=== PATIENT | female | born 1950 | race Caucasian/White ===

== ENCOUNTER 2019-12-28 09:49 | Outpatient (CLI) | payer MEDICARE, SELFPAY ==
--- NOTE | ~2019-12-28 | DEXA_ITS ---
Bone Density Report Name: Marci Hess Age: 69 Sex: Female Ethnicity: White Date of : 1950 Indication: osteopenia; height loss; Referring Provider: ANGELA RUANO Study: Bone densitometry was performed. Exam Date: December 28, 2019 Accession number: [id number] Bone Density: Region BMD T-score Z-score Classification AP Spine (L1, L2) 0.888 -0.8 1.1 Normal Femoral Neck (Left) 0.630 -2.0 -0.2 Osteopenia Total Hip (Left) 0.786 -1.3 0.2 Osteopenia Total Hip Bilateral Avg 0.794 -1.3 0.3 Osteopenia Femoral Neck (Right) 0.632 -2.0 -0.2 Osteopenia Total Hip (Right) 0.800 -1.2 0.3 Osteopenia World Health Organization criteria for BMD impression classify patients as: Normal (T-score at or above -1.0), Osteopenia (T-score between -1.0 and -2.5), or Osteoporosis (T-score at or below -2.5). 10-year Fracture Risk(1): Major Osteoporotic Fracture 11% Hip Fracture 2.0% Reported Risk Factors: [place] (), Neck BMD=0.632, BMI=28.6 (1) FRAX(R) Version 3.08. Fracture probability calculated for an untreated patient. Fracture probability may be lower if the patient has received treatment. Previous Exams: Region Exam Age BMD T-score BMD Change BMD Change Date g/cm2 vs Baseline vs Previous AP Spine(L1, L2) 12/28/2019 69 0.888 -0.8 -0.132(-12.9%) -0.062(-6.6%)* 12/24/2017 67 0.951 -0.3 -0.070(-6.8%)# -0.064(-6.3%)# 06/19/2010 60 1.014 0.3 -0.006(-0.6%) -0.006(-0.6%) 03/03/2007 56 1.020 0.4 Total Hip(Left) 12/28/2019 69 0.786 -1.3 -0.069(-8.0%)# -0.027(-3.4%)* 12/24/2017 67 0.813 -1.1 -0.041(-4.8%)# -0.008(-1.0%)# 06/19/2010 60 0.822 -1.0 -0.033(-3.9%)* -0.033(-3.9%)* 03/03/2007 56 0.855 -0.7 Total Hip(Right) 12/28/2019 69 0.800 -1.2 -0.054(-6.3%)# -0.017(-2.1%) 12/24/2017 67 0.817 -1.0 -0.037(-4.3%)# -0.013(-1.5%)# 06/19/2010 60 0.830 -0.9 -0.024(-2.8%) -0.024(-2.8%) 03/03/2007 56 0.854 -0.7 *Denotes significance at 95% confidence level, LSC for AP Spine = 0.022 g/cm2, LSC for Total Hip = 0.027 g/cm2 Clinical Information Provided by Patient: Has used the following medications: Vitamin D Patient maximum height was 63 Menopause Age: 50 Does not regularly consume dairy products Onset of menses at age 11 Number of children 2 Impression: The patient has low bone mass, based on the Left Femoral Neck T-score. The patient has an estimated ten-year risk of hip frac
== END 2019-12-28 09:50 | disposition home or self-care (01) ==
PROVIDERS: PCP Family Medicine; Visit Provider Family Medicine
DX: Z78.0 Asymptomatic menopausal state (principal); M85.852 Other specified disorders of bone density and structure, left thigh; M85.851 Other specified disorders of bone density and structure, right thigh
CPT/HCPCS: 77080

== ENCOUNTER 2021-03-28 15:11 | Outpatient (CLI) | payer MEDICARE, SELFPAY ==
--- NOTE | ~2021-03-28 | MM_ITS ---
EXAMINATION: MM screening jeff BI w liudmila HISTORY: Screening mammogram TECHNIQUE: Craniocaudal and mediolateral oblique 3-D tomosynthesis images were obtained and synthetic 2-D images were generated. CAD analysis was submitted and interpreted. COMPARISON: 01/26/2019, 12/24/2017, 12/18/2016 bilateral digital screening mammogram examinations BREAST PARENCHYMAL COMPOSITION: There are scattered areas of fibroglandular density. FINDINGS: There is no evidence of suspicious mass, calcification, or architectural distortion to sugg est malignancy in either breast. There has been no suspicious interval change. IMPRESSION: 1. No mammographic evidence of malignancy. 2. Recommend routine screening mammography in one year. BI-RADS Category 1: Negative Reviewed, dictated and finalized at location A.
== END 2021-03-28 15:12 | disposition home or self-care (01) ==
LOC: ANHIMG 15:15
PROVIDERS: PCP Family Medicine; Visit Provider Family Medicine
DX: Z12.31 Encounter for screening mammogram for malignant neoplasm of breast (principal)
CPT/HCPCS: 77063; 77067

== ENCOUNTER 2021-07-13 01:48 | Day surgery (SDC) | payer MEDICARE, SELFPAY ==
[2021-07-04 12:12] VITALS: BMI 27.3
--- NOTE | 2021-07-12 13:09 | WPDANESEPPF ---
Anes - Initial Pre Proc Eval Procedure: Operation Date: 07/13/21 09:30 Proposed Procedures p Screening Colonoscopy - Luiz Rios MD Date/Time: 07/12/21 13:09 Surgeon: Luiz Rios MD Pre Op Diagnosis: neoplasm screening Z12.11 Patient Data Age: 71 Gender: F Height: 1.57 m Weight: 68 kg Allergies Allergy/AdvReac Type Severity Reaction Status Date / Time No Known Allergies Allergy Verified 07/13/21 09:06 Home Medications Medication Instructions Recorded Confirmed Type ascorbic acid (vitamin C) 250 mg 250 mg PO DAILY 05/17/21 07/04/21 History tablet cholecalciferol (vitamin D3) 25 25 mcg PO DAILY 05/17/21 07/04/21 History mcg (1,000 unit) capsule magnesium 250 mg tablet 250 mg PO DAILY 05/17/21 07/04/21 History zinc sulfate 25 mg zinc (110 mg) 25 mg PO DAILY 05/17/21 07/04/21 History tablet Patient hx anesthesia problems: none Family hx anesthesia problems: none PMFSH Past Medical History Medical History Allergic rhinitis Lumbar radiculopathy Postmenopausal Surgical History Surgical History History of cataract extraction Hx of colonoscopy 2016 polyp. repeat in 5 years Family History Family History Mother Family history of thyroid disease Family history of congestive heart failure Patient's mother is Father Family history of atrial fibrillation Depression Family history of cardiovascular disease Grandparent Diabetes mellitus Sibling Family history of mental disorder Family history of malignant neoplasm of breast in first degree relative Social History Social History Smoking status: Never smoker Alcohol intake: never Substance use: never Living arrangements: with family Gender identity (if verbalized by the patient): Female Spiritual care concerns: No Anes - Eval Final PreProcedure Day of Procedure 07/12/21 13:09 Patient weight: overweight Heart: regular rate and rhythm Lungs: clear to auscultation and normal air movement Airway: Mallampati scale class II Neurological: alert and oriented Last oral intake: >/= 8 hours ASA classification: II Emergent: no Anesthetic plan: proceed Anesthesia type and monitoring: general GIVS and standard monitoring Informed Consent: The patient's anesthetic plan and its attendant risks and benefits were discussed with the patient/family/POA. Questions were solicited and answers provided to the satisfaction of the patient/family/POA.
[2021-07-13 09:07] VITALS: BP 125/73; PULSE 89; RESP 20; TEMP 36.6; O2SAT 98
[2021-07-13] MEDS: LACTATED RINGERS 1,000 ML 150 ML IV CONT (09:20)
--- NOTE | 2021-07-13 09:25 | WPDGICN ---
Assessment and Plan Assessment and plan (1) History of colon polyps: Code(s): Z86.010 - Personal history of colonic polyps Status: Acute Assessment and Plan: Patient has a history of adenomatous colon polyp removed from the colon 2016. Plan is for surveillance exam this year and consider follow-up exams every 5 years. (2) Family history of colonic polyps: Code(s): Z83.71 - Family history of colonic polyps Status: Acute Assessment and Plan: Patient's sister was identified as having colon polyps. Plan is for surveillance colonoscopy at 5 year intervals. GI Consult Note Consult date/time: 07/13/21 09:25 HPI: Marci Hess is a 71 year old female Presents for screening colonoscopy. Patient reports that her current weight appetite bowel movements are normal. She denies abdominal pain. She has had no bleeding. She does have a prior history of adenomatous colon polyp removed from the colon in 2016. Her sister was recently identified as having colon polyps as well. Patient presents today for a neoplasia screening colonoscopy. Review of Systems Review of Systems: All systems reviewed & are unremarkable except as noted in HPI and below PMFSH Past Medical History Medical History Allergic rhinitis Lumbar radiculopathy Postmenopausal Surgical History Surgical History History of cataract extraction Hx of colonoscopy 2016 polyp. repeat in 5 years Family History Family History Mother Family history of thyroid disease Family history of congestive heart failure Patient's mother is Father Family history of atrial fibrillation Depression Family history of cardiovascular disease Grandparent Diabetes mellitus Sibling Family history of mental disorder Family history of malignant neoplasm of breast in first degree relative Social History Social History Smoking status: Never smoker Alcohol intake: never Substance use: never Living arrangements: with family Gender identity (if verbalized by the patient): Female Spiritual care concerns: No Meds Home Medications and Allergies Home Medications Medication Instructions Recorded Confirmed Type ascorbic acid (vitamin C) 250 mg 250 mg PO DAILY 05/17/21 07/04/21 History tablet cholecalciferol (vitamin D3) 25 25 mcg PO DAILY 05/17/21 07/04/21 History mcg (1,000 unit) capsule magnesium 250 mg tablet 250 mg PO DAILY 05/17/21 07/04/21 History zinc sulfate 25 mg zinc (110 mg) 25 mg PO DAILY 05/17/21 07/04/21 History tablet Allergies Allergy/AdvReac Type Severity Reaction Status Date / Time No Known Allergies Allergy Verified 07/13/21 09:06 Vital Signs Vital Signs - 24 hr 07/13/21 09:07 Temperature 97.8 F Pulse Rate 89 Respiratory Rate 20 Blood Pressure 125/73 Pulse Oximetry 98 Exam Narrative: Physical exam reveals patient to be alert. Vital signs are stable. HEENT exam is unremarkable. Patient is anicteric. Lungs are clear to auscultation and percussion. Heart is without murmur or extra sounds. Abdominal exam bowel sounds are present soft nontender with no organomegaly. Digital external rectal exam is normal.
[2021-07-13 10:22] VITALS: BP 126/76; PULSE 65; RESP 17; O2SAT 100
[2021-07-13 10:32] VITALS: BP 125/81; PULSE 71; RESP 20; O2SAT 100
[2021-07-13 10:42] VITALS: BP 124/77; PULSE 71; RESP 19; O2SAT 100
== END 2021-07-13 11:03 | disposition home or self-care (01) ==
PROVIDERS: PCP Family Medicine; Visit Provider Internal Medicine Gastroenterology
PROC: 0DJD8ZZ Inspection of Lower Intestinal Tract, Via Natural or Artificial Opening Endoscopic (ICD-10-PCS; CPT 45378; principal; 2021-07-13 09:30)
DX: Z12.11 Encounter for screening for malignant neoplasm of colon (principal); Z86.010 Personal history of colon polyps; Z83.71 Family history of colonic polyps; K64.8 Other hemorrhoids; M54.16 Radiculopathy, lumbar region
CPT/HCPCS: G0105; J2704; J7120

== ENCOUNTER 2022-07-31 09:07 | Outpatient (CLI) | payer MEDICARE, SELFPAY ==
--- NOTE | ~2022-07-31 | MM_ITS ---
EXAMINATION: MM screening jeff BI w liudmila HISTORY: Screening mammogram TECHNIQUE: Craniocaudal and mediolateral oblique 3-D tomosynthesis images were obtained and synthetic 2-D images were generated. CAD analysis was submitted and interpreted. COMPARISON: 03/28/2021, 01/26/2019 bilateral screening mammogram examinations BREAST PARENCHYMAL COMPOSITION: There are scattered areas of fibroglandular density. FINDINGS: There is no evidence of suspicious mass, calcification, or architectural distortion to sugg est malignancy in either breast. There has been no suspicious interval change. IMPRESSION: 1. No mammographic evidence of malignancy. 2. Recommend routine screening mammography in one year. BI-RADS Category 1: Negative Reviewed, dictated and finalized at location A.
== END 2022-07-31 09:08 | disposition home or self-care (01) ==
PROVIDERS: PCP Family Medicine; Visit Provider Family Medicine
DX: Z12.31 Encounter for screening mammogram for malignant neoplasm of breast (principal)
CPT/HCPCS: 77063; 77067

== ENCOUNTER 2022-09-21 09:36 | Outpatient (CLI) | payer MEDICARE, SELFPAY ==
--- NOTE | ~2022-09-21 | DEXA_ITS ---
Bone Density Report Name: LD JAMES Age: 72 Sex: Female Ethnicity: White Date of : 1950 Indication: postmenopausal; screening for osteoporosis; height loss; Referring Provider: ISSA PERES Study: Bone densitometry was performed. Exam Date: September 21, 2022 Accession number: [id number] Bone Density: Region BMD T-score Z-score Classification AP Spine(L1, L2) 0.952 -0.2 1.9 Normal Femoral Neck (Left) 0.619 -2.1 -0.1 Osteopenia Total Hip (Left) 0.749 -1.6 0.1 Osteopenia Femoral Neck (Right) 0.622 -2.0 -0.1 Osteopenia Total Hip (Right) 0.778 -1.3 0.3 Osteopenia Total Hip Mean 0.764 -1.5 0.2 Osteopenia World Health Organization criteria for BMD impression classify patients as: Normal (T-score at or above -1.0), Osteopenia (T-score between -1.0 and -2.5), or Osteoporosis (T-score at or below -2.5). 10-year Fracture Risk(1): Major Osteoporotic Fracture 12% Hip Fracture 2.7% Reported Risk Factors: [place] (), Neck BMD=0.619, BMI=28.3 (1) FRAX(R) Version 3.08. Fracture probability calculated for an untreated patient. Fracture probability may be lower if the patient has received treatment. Clinical Information Provided by Patient: Has used the following medications: Vitamin D Patient maximum height was 63 Menopause Age: 50 Drinks caffeinated beverages Onset of menses at age 11 Number of children 2 Impression: The patient has low bone mass, based on the Left Femoral Neck T-score. The patient has an estimated ten-year risk of hip fracture of 2.7% and an estimated ten-year risk of major fracture of 12%, based on the WHO FRAX algorithm. Discussion: BONE DENSITY IS LOW AT ONE OR MORE SKELETAL SITES. This patient's lowest T-score is low at one or more skeletal sites. It meets the World Health Organization's (WHO) criteria for ?low bone mass? (T-score between -1.0 and -2.5). The patient's 10-year risk of fracture as calculated by FRAX is less than the threshold where pharmacological therapy is recommended by the National Osteoporosis Foundation (NOF). However, all treatment decisions require clinical judgment and consideration of individual patient factors, including patient preferences, comorbidities, previous drug use, risk factors not captured in the FRAX model (e.g., frailty, falls, vitamin D deficiency, increased bone turnover, interval significant decline in bone density) and possible under or overestimation of fracture risk by FRAX. The patient should follow a healthful lifestyle (good nutrition with adequate calcium and vitamin D, and appropriate weight-bearing exercise). Follow-Up: Consider repeating this study in 2 to 3 years to reassess this patient's status, or sooner if there is some new clinical indication. Reported by: ENA on 09/21/2022 9:56:
== END 2022-09-21 09:37 | disposition home or self-care (01) ==
LOC: ANHIMG 09:39
PROVIDERS: PCP Family Medicine; Visit Provider Physician Assistant
DX: Z78.0 Asymptomatic menopausal state (principal); M85.89 Other specified disorders of bone density and structure, multiple sites
CPT/HCPCS: 77080

== ENCOUNTER → 2023-01-14 11:33 | Outpatient (CLI) | payer MEDICARE, SELFPAY ==
--- NOTE | ~2023-01-14 | XR_ITS ---
AP and lateral views of the right hip Clinical history: Pain Findings: No acute fracture or dislocation is seen. Osseous alignment is anatomic. Minimal degenerati ve change of the right hip joint noted. Soft tissues are unremarkable. Impression: Minimal degenerative change at the right hip joint. Reviewed, dictated and finalized at [facility]. Impression: Minimal degenerative change at the right hip joint.
--- NOTE | ~2023-01-14 | XR_ITS ---
Lumbosacral Spine: AP and lateral views Clinical History: Pain COMPARISON: 11/25/2018 Findings: Osseous alignment is stable from prior exam. No acute fracture or subluxation. Advanced deg enerative disc narrowing at L3-L4 present. There is mild facet arthropathy throughout the lumbar spin e. The sacroiliac joints are normally outlined. Impression: Degenerative spondylosis, stable from prior exam. Reviewed, dictated and finalized at location M. Impression: Degenerative spondylosis, stable from prior exam.
== END ==
PROVIDERS: PCP Family Medicine; Visit Provider Physician Assistant
DX: M47.26 Other spondylosis with radiculopathy, lumbar region (principal); M16.11 Unilateral primary osteoarthritis, right hip
CPT/HCPCS: 72100; 73502

== ENCOUNTER 2023-08-15 13:33 | Outpatient (CLI) | payer MEDICARE, SELFPAY ==
--- NOTE | ~2023-08-15 | MM_ITS ---
EXAMINATION: MM screening jeff BI w liudmila HISTORY: Screening mammogram TECHNIQUE: Craniocaudal and mediolateral oblique 3-D tomosynthesis images were obtained and synthetic 2-D images were generated. CAD analysis was submitted and interpreted. COMPARISON: 07/31/2022, 03/28/2021, 01/26/2019 bilateral screening mammogram examinations BREAST PARENCHYMAL COMPOSITION: There are scattered areas of fibroglandular density. FINDINGS: There is no evidence of suspicious mass, calcification, or architectural distortion to sugg est malignancy in either breast. There has been no suspicious interval change. IMPRESSION: 1. No mammographic evidence of malignancy. 2. Recommend routine screening mammography in one year. BI-RADS Category 1: Negative Reviewed, dictated and finalized at location A.
== END 2023-08-15 13:34 | disposition home or self-care (01) ==
PROVIDERS: PCP Family Medicine; Visit Provider Family Medicine
DX: Z12.31 Encounter for screening mammogram for malignant neoplasm of breast (principal)
CPT/HCPCS: 77063; 77067

== ENCOUNTER 2024-03-06 11:05 | Outpatient (CLI) | payer MEDICARE, SELFPAY ==
--- NOTE | ~2024-03-06 | XR_ITS ---
XR finger 1st RT min 2V 03/06/2024 11:22 Indication: Right first finger pain Procedure: 3 views right first finger Comparison: No prior studies for comparison. Findings: There is moderate polyarticular osteoarthritis. No fracture, subluxation or dislocation. No focal soft tissue abnormality. No foreign bodies. 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 Reviewed, dictated and finalized at location B. 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
== END 2024-03-06 11:06 ==
PROVIDERS: PCP Family Medicine; Visit Provider Nurse Practitioner Family
DX: M19.041 Primary osteoarthritis, right hand (principal)
CPT/HCPCS: 73140

== ENCOUNTER 2024-08-24 09:14 | Outpatient (CLI) | payer MEDICARE, SELFPAY ==
--- NOTE | ~2024-08-24 | MM_ITS ---
EXAMINATION: MM screening jeff BI w liudmila HISTORY: Screening TECHNIQUE: Craniocaudal and mediolateral oblique 3-D tomosynthesis images were obtained and synthetic 2-D images were generated. CAD analysis was submitted and interpreted. COMPARISON: Comparison to multiple prior studies sequentially, with oldest reviewed study dated 12/18. BREAST PARENCHYMAL COMPOSITION: Not dense: There are scattered areas of fibroglandular density. FINDINGS: There is no evidence of suspicious mass, calcification, or architectural distortion to sugg est malignancy in either breast. There has been no suspicious interval change. IMPRESSION: 1. No mammographic evidence of malignancy. 2. Recommend routine screening mammography in one year. BI-RADS Category 1: Negative Reviewed, dictated and finalized at location B.
== END 2024-08-24 09:15 | disposition home or self-care (01) ==
LOC: ANHIMG 09:17
PROVIDERS: PCP Family Medicine; Visit Provider Family Medicine
DX: Z12.31 Encounter for screening mammogram for malignant neoplasm of breast (principal)
CPT/HCPCS: 77063; 77067

== ENCOUNTER 2025-10-01 09:35 | Outpatient (CLI) | payer MEDICARE, SELFPAY ==
--- NOTE | ~2025-10-01 | MM_ITS ---
EXAMINATION: MM screening jeff BI w liudmila HISTORY: Screening. TECHNIQUE: Craniocaudal and mediolateral oblique 3-D tomosynthesis images were obtained and synthetic 2-D images were generated. CAD analysis was submitted and interpreted. COMPARISON: 2023, 2022, and 2021. BREAST PARENCHYMAL COMPOSITION: Not Dense: There are scattered areas of fibroglandular tissue. FINDINGS: No suspicious masses are seen. There are no suspicious calcifications. No unexplained architectural distortion is seen. There are no skin or nipple abnormalities identified. There is no adenopathy seen on the images submitted. IMPRESSION: No mammographic evidence to suggest malignancy is seen. The patient may return to screening mammography as per ACR guidelines. BI-RADS: 1 - Negative. Reviewed, dictated and finalized at location A. CLING SORTER
== END 2025-10-01 09:36 | disposition home or self-care (01) ==
LOC: ANHFOHIMG 09:38
PROVIDERS: PCP Family Medicine; Visit Provider Family Medicine
DX: Z12.31 Encounter for screening mammogram for malignant neoplasm of breast (principal)
CPT/HCPCS: 77063; 77067